=== PATIENT | male | born 1985 | race American Indian/Alaskan Native ===

== ENCOUNTER 2022-02-06 09:11 | Outpatient (CLI) | payer OTHER ==
[2022-02-06 09:51] VITALS: BP 120/74
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
== END 2022-02-06 09:12 | disposition home or self-care (01) ==
LOC: SC 09:11
PROVIDERS: ATTEND Nurse Practitioner Family
DX: R06.83 Snoring (principal); R06.81 Apnea, not elsewhere classified; G47.8 Other sleep disorders; E66.9 Obesity, unspecified; Z68.32 Body mass index [BMI] 32.0-32.9, adult
CPT/HCPCS: 99203; 99212

== ENCOUNTER 2022-03-01 19:38 | Outpatient (CLI) | payer OTHER | END 2022-03-01 19:39 | disposition home or self-care (01) | LOC: SC 19:38 | PROVIDERS: ATTEND Nurse Practitioner Family | DX: G47.33 Obstructive sleep apnea (adult) (pediatric) (principal) | CPT/HCPCS: 95810 ==

== ENCOUNTER 2022-06-20 13:46 | Outpatient (CLI) | payer OTHER ==
--- NOTE | 2022-06-20 14:16 | SLEEP CARE CONSULTATION ---
Information from patient questionnaire entered by Toño Castro. I have reviewed and concur with the information entered by Toño Castro. This document represents the service I personally performed and the decisions made by me, Julianna Mazariegos ARNP. History of Present Illness Service Date and Time: 06/20/2022 1346 Previous diagnosis: Severe, Obstructive Sleep Apnea-Hypopnea Syndrome AHI: 54.5 (in 2021) Reason for follow up: first compliance (PT NEEDS TO BRING IN SD AND OR MACHINE ) Equipment type: CPAP (ResMed Airsense 11, s/u 04/2022) Equipment obtained from: [employer] ([employer]) Mask style: Nasal pillows Mask brand: Resmed (Airfit P30i) Backup mask available: Yes (other mask (full face)) Prior sleep studies: No Type of Sleep Study: Polysomnography (COMPLETED 03/01/2022) HPI additional information: SUSAN BERRIOS was diagnosed to have severe, AHI 54.5, obstructive sleep apnea- hypopnea syndrome and returned today for CPAP therapy first compliance follow- up. Sleep Study - Results Type of Sleep Study: Polysomnography (COMPLETED 03/01/2022) Prior sleep studies: No CPAP Compliance Data - Data Reviewed with Patient Average duration of nightly device use: 4 hours 17 minutes Compliance rate %: 57 (30/30 days used) Current pressure setting (cmH2O): 4-15 (median 8.0, avg 10.6, max 11.6) Average residual AHI: 2.2 Central apnea: 0.5 Obstructive apnea: 0.8 Subjective Patient concerns: reports: mask leak noise (with full face mask). denies: aerophagia, mask discomfort, air blowing in eyes, condensation in mask/hose, nasal congestion, dry mouth, nose, throat, epistaxis Observed to snore while using device: No Current pressure setting perceived as: comfortable On therapy, patient: reports: sleeping better, awakening more refreshed, being more awake and alert during the day, more rested overall. denies: drowsiness while driving Initial [place] Sleepiness Scale score: 19 (02/06/22) Current [place] Sleepiness Scale score: 15 (06/20/22) Allergies and Home Medications Drug allergies reviewed: Yes (NKDA) Home medication list reviewed: Yes (no changes) Review of Systems Review of systems same as previous: Yes (no changes) Physical Exam Vital signs obtained and entered by: TOÑO Carrillo MA Blood Pressure: 124/86 (LEFT ARM) Cuff size: regular Heart Rate: 75 O2 Saturation: 97 Height: 6 ft Weight: 244 lb 12.8 oz Body Mass Index: 33.2 BMI Classification: Obese Impression and Plan 1. Obstructive Sleep Apnea-Hypopnea Syndrome, severe, with fair treatment compliance and good apnea control. On CPAP therapy, the patient has better sleep quality and is more rested overall. He changed from a full face mask to a nasal pillows mask and finds it more comfortable. He is able to keep on for longer periods of time and is sleeping better. He still feels like that he felt more rested when using the full face but the mask leaking noise was not tolerable. He is only getting about 4 + hours night on average of sleep total. I advised him to continue with using the nasal pillows mask and increase sleep time to reduce daytime fatigue. He voiced understanding. The patients pressure will be changed to autoCPAP 9-12 cmH20 to reflect pressures being used. Patient advised to contact me if pressure change is uncomfortable so that it can be adjusted. Goals for apnea control discussed. Patient's apnea severity and rationale for treatment to reduce apnea, improve sleep quality and reduce cardiovascular and cerebrovascular events was reviewed. 2. Obesity, unspecified. Currently patients BMI is 33.2. Obesity increases the risk of apnea, CPAP pressure requirements and overall health risks especially cardiovascular and diabetes. Thus patient is advised to lose weight. * Increase ramp starting pressure to 6 cmH2O * Change auto CPAP pressure to 9-12 cmH2O * Notify me if snoring with mask or feeling that the pressure is too much or too little * Attempt to lose weight * Call this office if any problems using CPAP * Return for follow up in 1-2 months, or sooner if concerns arise Counseling Topics: Spare mask, Weight loss health impact Visit Type: In Office Time Spent with Patient (minutes): 20 Provider Statement: I spent 100% of the Face to Face Visit with the patient with greater than 50% spent counseling the patient and coordination of care.
[2022-06-20 14:17] VITALS: BP 124/86
== END 2022-06-20 13:47 | disposition home or self-care (01) ==
LOC: SC 13:46
PROVIDERS: ATTEND Nurse Practitioner Family
DX: G47.33 Obstructive sleep apnea (adult) (pediatric) (principal); E66.9 Obesity, unspecified; Z68.33 Body mass index [BMI] 33.0-33.9, adult
CPT/HCPCS: 99212; 99213

== ENCOUNTER 2022-09-25 14:36 | Outpatient (CLI) | payer OTHER ==
--- NOTE | 2022-09-25 15:08 | Sleep Patient Instructions ---
Sleep Center Visit Summary - Patient Visit Information Reason for Visit: 2 month follow up for CPAP therapy - Patient Instructions Additional Instructions: You were here for follow up of CPAP therapy. You will be continued on CPAP therapy with pressure at 9-12 cmH2O. Please let us know if the pressure change is uncomfortable and we can make further adjustments of the pressure. You should follow up with sleep care in 3 months. You may contact us sooner for any questions or concerns. - Clinic Information Contact: [facility] [address] [place] [id number] [email or web address] T: [phone]
--- NOTE | 2022-09-25 15:21 | SLEEP CARE CONSULTATION ---
Information from patient questionnaire entered by Toño Castro. I have reviewed and concur with the information entered by Toño Castro. This document represents the service I personally performed and the decisions made by , Julianna Mazariegos ARNP. History of Present Illness Service Date and Time: 09/25/2022 1436 Previous diagnosis: Severe, Obstructive Sleep Apnea-Hypopnea Syndrome AHI: 54.5 (in 2021) Reason for follow up: other (2 MONTH F/U ) Equipment type: CPAP (ResMed Airsense 11, s/u 04/2022 NEED MACHINE) Equipment obtained from: [employer] (getting supplies) Mask style: Nasal pillows Mask brand: Resmed (AirFit P30i) Backup mask available: Yes (other mask) Last cushion change: 6 weeks Prior sleep studies: No Type of Sleep Study: Polysomnography (COMPLETED 03/01/2022) HPI additional information: SUSAN BERRIOS was diagnosed to have severe, AHI 54.5, obstructive sleep apnea- hypopnea syndrome and returned today for CPAP therapy two month follow-up. Sleep Study - Results Type of Sleep Study: Polysomnography (COMPLETED 03/01/2022) Prior sleep studies: No CPAP Compliance Data - Data Reviewed with Patient Average duration of nightly device use: 6 hours 21 minutes Compliance rate %: 75 (48/60 days used) Current pressure setting (cmH2O): 9-12 Average residual AHI: 1.4 Central apnea: 0.4 Obstructive apnea: 0.5 Hypopnea: 0.4 Average large leak: 0.3 L/min Subjective Patient concerns: reports: dry mouth, nose, throat (dry mouth, occasional). denies: aerophagia, mask discomfort, air blowing in eyes, mask leak noise, condensation in mask/hose, nasal congestion, epistaxis Observed to snore while using device: No Current pressure setting perceived as: comfortable On therapy, patient: reports: sleeping better, awakening more refreshed, being more awake and alert during the day, more rested overall. denies: drowsiness while driving Initial [place] Sleepiness Scale score: 19 (02/06/22) Current [place] Sleepiness Scale score: 11 (09/25/22) Allergies and Home Medications Known drug allergies: No Drug allergies reviewed: Yes Home medication list reviewed: Yes (no changes) Allergy and home medication list: Allergies No Known Drug Allergies Allergy (Verified 09/24/22 09:45) Review of Systems Review of systems same as previous: Yes (no changes) Physical Exam Vital signs obtained and entered by: TOÑO Carrillo MA Blood Pressure: 128/76 (LEFT ARM) Cuff size: long Heart Rate: 92 O2 Saturation: 97 Height: 6 ft Weight: 241 lb 6.4 oz Weight change since last visit: 3 lbs loss Body Mass Index: 32.7 BMI Classification: Obese Impression and Plan 1. Obstructive Sleep Apnea-Hypopnea Syndrome, severe, with good treatment compliance and good apnea control. On CPAP therapy, the patient has better sleep quality and is more rested overall. Patient has significant improvement of their sleep apnea and is satisfied with current CPAP therapy. He has had some mouth dryness but he states it is not every night and a little water usually clears it up. He denies any other concerns or issues with the CPAP mask or machine. I will have him follow up in 3 months. Patient's apnea severity and rationale for treatment to reduce apnea, improve sleep quality and reduce cardiovascular and cerebrovascular events was reviewed. 2. Obesity, unspecified. Currently patients BMI is 32.7. He has lost weight. Obesity increases the risk of apnea, CPAP pressure requirements and overall health risks especially cardiovascular and diabetes. Thus patient is advised to lose weight. * Continue auto CPAP pressure at 9-12 cmH2O * Notify me if snoring with mask or feeling that the pressure is too much or too little * Attempt to lose weight * Call this office if any problems using CPAP * Return for follow up in 3 months, or sooner if concerns arise Counseling Topics: Spare mask, Weight loss health impact Visit Type: In Office Time Spent with Patient (minutes): 20 Provider Statement: I spent 100% of the Face to Face Visit with the patient with greater than 50% spent counseling the patient and coordination of care.
[2022-09-25 15:34] VITALS: BP 128/76
== END 2022-09-25 14:37 | disposition home or self-care (01) ==
LOC: SC 14:36
PROVIDERS: ATTEND Nurse Practitioner Family
DX: G47.33 Obstructive sleep apnea (adult) (pediatric) (principal); E66.9 Obesity, unspecified; Z68.32 Body mass index [BMI] 32.0-32.9, adult
CPT/HCPCS: 99212; 99213

== ENCOUNTER 2022-12-18 14:56 | Outpatient (CLI) | payer OTHER ==
--- NOTE | 2022-12-18 15:17 | Sleep Patient Instructions ---
Sleep Center Visit Summary - Patient Visit Information Reason for Visit: Three month followup for PAP therapy - Patient Instructions Additional Instructions: You were here for follow up of CPAP therapy. You will be continued on CPAP therapy with pressure at 9-12 cmH2O. You should follow up with sleep care in 12 months. You may contact us sooner for any questions or concerns. - Clinic Information Contact: [facility] [address] [place] [address] [email or web address] T: [phone]
--- NOTE | 2022-12-18 15:20 | SLEEP CARE CONSULTATION ---
Information from patient questionnaire entered by Toño Castro. I have reviewed and concur with the information entered by Toño Castro. This document represents the service I personally performed and the decisions made by , Julianna Mazariegos ARNP. History of Present Illness Service Date and Time: 12/18/2022 1456 Previous diagnosis: Severe, Obstructive Sleep Apnea-Hypopnea Syndrome AHI: 54.5 (in 2021) Reason for follow up: three month (F/U) Equipment type: CPAP (ResMed Airsense 11, s/u 04/2022 need machine) Equipment obtained from: [employer] (getting supplies) Mask style: Nasal pillows Mask brand: Resmed (AirFit P30i) Backup mask available: Yes (old mask) Last cushion change: 1 month Prior sleep studies: No Type of Sleep Study: Polysomnography (COMPLETED 03/01/2022) HPI additional information: SUSAN BERRIOS was diagnosed to have severe, AHI 54.5, obstructive sleep apnea- hypopnea syndrome and returned today for CPAP therapy three month follow-up. Sleep Study - Results Type of Sleep Study: Polysomnography (COMPLETED 03/01/2022) Prior sleep studies: No CPAP Compliance Data - Data Reviewed with Patient Average duration of nightly device use: 5 hours 39 minutes Compliance rate %: 78 (83/90 days used) Current pressure setting (cmH2O): 9-12 Average residual AHI: 1.2 Central apnea: 0.3 Obstructive apnea: 0.4 Hypopnea: 0.3 Average large leak: 0.2 L/min Subjective Missed days of use due to: reports: travel (not at home) Patient concerns: denies: aerophagia, mask discomfort, air blowing in eyes, mask leak noise, condensation in mask/hose, nasal congestion, dry mouth, nose, throat, epistaxis Observed to snore while using device: No Current pressure setting perceived as: comfortable On therapy, patient: reports: sleeping better, awakening more refreshed, being more awake and alert during the day, more rested overall. denies: drowsiness while driving Initial [place] Sleepiness Scale score: 19 (02/06/22) Current [place] Sleepiness Scale score: 12 (12/18/22) Allergies and Home Medications Known drug allergies: No Drug allergies reviewed: Yes Home medication list reviewed: Yes (no changes) Allergy and home medication list: Allergies No Known Drug Allergies Allergy (Verified 12/17/22 11:45) Review of Systems Review of systems same as previous: Yes (no changes) Physical Exam Vital signs obtained and entered by: TOÑO Carrillo MA Blood Pressure: 128/70 (LEFT ARM) Cuff size: regular Heart Rate: 69 O2 Saturation: 97 Height: 6 ft Weight: 238 lb 6.4 oz Body Mass Index: 32.3 BMI Classification: Obese Impression and Plan 1. Obstructive Sleep Apnea-Hypopnea Syndrome, severe, with good treatment compliance and good apnea control. On CPAP therapy, the patient has better sleep quality and is more rested overall. Patient has significant improvement of their sleep apnea and is satisfied with current CPAP therapy. Patient denies problems with oral dryness, nasal congestion, epistaxis, skin irritation or aerophagia. Patient's apnea severity and rationale for treatment to reduce apnea, improve sleep quality and reduce cardiovascular and cerebrovascular events was reviewed. He is going to be moving in April, back to [place]. I advised him to establish with a sleep provider in that area once he moves back for a yearly followup. He voiced understanding. 2. Obesity, unspecified. Currently patients BMI is 32.3. Obesity increases the risk of apnea, CPAP pressure requirements and overall health risks especially cardiovascular and diabetes. Thus patient is advised to lose weight. * Continue auto CPAP pressure at 9-12 cmH2O * Notify me if snoring with mask or feeling that the pressure is too much or too little * Attempt to lose weight * Call this office if any problems using CPAP * Return for follow up in 1 year, or sooner if concerns arise Counseling Topics: Spare mask, Weight loss health impact Visit Type: In Office Time Spent with Patient (minutes): 12 Provider Statement: I spent 100% of the Face to Face Visit with the patient with greater than 50% spent counseling the patient and coordination of care.
[2022-12-18 15:29] VITALS: BP 128/70; O2SAT 97
== END 2022-12-18 14:57 | disposition home or self-care (01) ==
LOC: SC 14:56
PROVIDERS: ATTEND Nurse Practitioner Family
DX: G47.33 Obstructive sleep apnea (adult) (pediatric) (principal); E66.9 Obesity, unspecified; Z68.32 Body mass index [BMI] 32.0-32.9, adult
CPT/HCPCS: 99212